=== PATIENT | male | born 1950 | race Caucasian/White ===

== ENCOUNTER 2022-06-18 12:21 | Emergency (ER) | payer BC, SELFPAY ==
[2022-06-18 12:24] VITALS: BP 130/79; PULSE 74; RESP 18; TEMP 37.2; O2SAT 98; BMI 29.0
[2022-06-18 13:58] VITALS: BP 117/72; PULSE 75; RESP 18; O2SAT 97
--- NOTE | 2022-06-18 14:00 | PC.NURSE ---
Pt approached patient experience staff requesting reevaluation. Pt reports throat feeling worse than earlier. Tonsillary pillars remain visualized during assessment. +dry cough. Lung sounds clear bilaterally. Speaking full sentences. Airway patent. managing own secretions. No increased swelling noted to lips. tongue intact. 96-97% RA.
[2022-06-18 14:23] VITALS: BP 136/79; PULSE 60; RESP 19; TEMP 36.7; O2SAT 98
--- NOTE | 2022-06-18 14:23 | ED.ALLEREA ---
HPI - Allergic Reaction General Chief complaint: Allergic Reaction Stated complaint: reaction to medication Time Seen by Provider: 06/18/22 14:22 Source: patient Mode of arrival: ambulatory Limitations: no limitations History of Present Illness HPI narrative: 71 yo male with hx of HTN, s/p cataract surgery - has taken two doses of diamox post cataract surgery noted lower lip swelling before bed. Took last dose around 230am then noted upper lip swelling. No diff speaking or swallowing. Patient states has never had allergic reaction before he is also on lisinopril 20mg complaint: facial swelling Onset (ago): hour(s) (12+) Exposure: medication (diamox vs lisinopril (chronic use)) Symptoms: lip swelling Severity: moderate Treatment prior to arrival: none Previous Allergic Reaction History: none Related Data Previous Rx's Medication Instructions Recorded losartan 50 mg tablet 50 mg PO DAILY #30 tabs 06/18/22 Allergies Allergy/AdvReac Type Severity Reaction Status Date / Time acetazolamide Allergy Swelling Verified 06/18/22 12:31 [From Diamox Sequels] Review of Systems Review of Systems: Constitutional : No Fever, No Chills ENT/Mouth : positive oral swelling, No Hoarseness, No Swallowing Difficulty Eyes: No Eye Pain, No Swelling, No Redness Cardiovascular : No Chest Pain, No SOB Respiratory : No Cough, No Sputum, No Wheezing, No Smoke Exposure, No Dyspnea Gastrointestinal : No Nausea, No Vomiting, No Diarrhea, No abdominal Pain Genitourinary : No Dysuria, No Urinary Frequency, No Hematuria Musculoskeletal : No joint pain, No Myalgias, No Joint Swelling Skin : No Skin Lesions, no rash Neuro : No Weakness, No Numbness, No Headache Psych : No Anxiety/Panic, No Depression Heme/Lymph: No Bruising, No Lymphadenopathy Endocrine : No Polyuria, No Polydipsia All other systems reviewed and are negative PMFSH Past Medical History Attestation statement: The following information was validated with the patient. Medical History HTN (hypertension) Surgical History (Updated 06/18/22 @ 14:34 by Jessika Valenzuela DO) History of cataract surgery Social History Social History Patient Tobacco Use Status: Never used Tobacco Advance Directives: No Advance Directives Information Provided: No Physical Exam ED Vital Signs: Vital Signs - 24 hr 06/18/22 12:24 06/18/22 13:58 06/18/22 14:23 Temperature 98.9 F 98.1 F Pulse Rate 74 75 60 Respiratory Rate 18 18 19 Blood Pressure 130/79 117/72 136/79 Pulse Oximetry 98 97 98 Oxygen Delivery Method Room Air Room Air Room Air 06/18/22 14:48 Temperature 98.3 F Pulse Rate 74 Respiratory Rate 18 Blood Pressure 132/74 Pulse Oximetry 97 Oxygen Delivery Method Room Air BMI result Body Mass Index 29.0 Appearance: Alert. Oriented X3. No acute distress. Eyes: Pupils equal, round and reactive to light. ENT: Pharynx normal - no tongue or intraoral swelling. lower lip mild swelling, upper lid moderate swelling normal voice. Neck: Normal inspection. Neck supple. CVS: Normal heart rate and rhythm. Pulses normal. Respiratory: No respiratory distress. Breath sounds normal. Abdomen: Soft and non-tender. Skin: Skin warm and dry. Normal skin color. Normal skin turgor. Extremities: No lower extremity edema. No calf ttp Neuro: Oriented X 3. No motor deficit. No sensory deficit. Course Course Course Narrative: patient with resolved lower lip swelling, mild upper lip swelling - no airway issues, discussed reasons to call 911, no longer take diamoxx and no longer take lisinopril MDM - Allergic Reaction MDM Narrative Medical decision making narrative: 71 yo male with hx of HTN, s/p cataract surgery here with resolving lower lip and upper lip swelling - no airway issues will need benadryl, pepcid, will avoid steroids if possible, no longer needs to take diamox. Will switch lisinopril to losartan. Observation pending discharge Discharge Plan Discharge Clinical Impression: Angioedema Qualifiers: Encounter type: initial encounter Qualified Code(s): T78.3XXA - Angioneurotic edema, initial encounter Patient Disposition: Home, Self-Care Instructions: Angioedema (ED) Additional Instructions: return to ED for any worsening symptoms or concerns can take 25mg benadryl at 9pm YOU CAN NO LONGER TAKE DIAMOX OR LISINOPRIL YOUR REACTION NEXT TIME COULD BE MUCH WORSE IF SWELLING PROGRESSES OR YOU HAVE DIFFICULTY BREATHING OR SWALLOWING SEEK IMMEDIATE MEDICAL CARE FOLLOW UP WITH PCP IN 1 WEEK Prescriptions: New losartan 50 mg tablet 50 mg PO DAILY Qty: 30 0RF
[2022-06-18] MEDS: diphenhydrAMINE HCL 50 MG/ML VIAL IVPUSH (14:36)
[2022-06-18] MEDS: Famotidine/PF 20 MG/2 ML VIAL IVPUSH (14:36)
--- NOTE | 2022-06-18 14:39 | PC.NURSE ---
patient a/ox4 . andresrla . heart rate regular at 56 beats per minute . lungs clear . upper lip swollen . no airway compromise noted , breathing unlabored . IV placed in right AC . patient medicated as ordered by DR. Valenzuela . abdomen soft not tender . positive bowel sounds ion all four quadrants . patient aware of plan of care .
[2022-06-18 14:48] VITALS: BP 132/74; PULSE 74; RESP 18; TEMP 36.8; O2SAT 97
--- NOTE | 2022-06-18 16:00 | PC.NURSE ---
Patient swelling in upper lip has decreased after administering medication as ordered by provider . patient aware of planb of care .
== END 2022-06-18 16:48 | disposition home or self-care (01) ==
PROVIDERS: Emergency Provider Emergency Medicine; PCP Internal Medicine
DX: T78.3XXA Angioneurotic edema, initial encounter (principal); T50.995A Adverse effect of other drugs, medicaments and biological substances, initial encounter; Y92.019 Unspecified place in single-family (private) house as the place of occurrence of the external cause
CPT/HCPCS: 96374; 96375; 99284; J1200

== ENCOUNTER 2025-05-07 20:51 | Emergency (ER) | payer MEDICARE, SELFPAY ==
--- NOTE | 2025-05-07 | ECG_ITS ---
Test Reason : FALL Blood Pressure : */* mmHG Vent. Rate : 65 BPM Atrial Rate : * BPM P-R Int : * ms QRS Dur : 126 ms QT Int : 442 ms P-R-T Axes : * -2 42 degrees QTcB Int : 459 ms Wide QRS rhythm Non-specific intra-ventricular conduction block Abnormal ECG No previous ECGs available Referred By: Generic ED Physician Electronically Signed By: Kalin Logan
--- NOTE | ~2025-05-07 | CT_ITS ---
CLINICAL HISTORY: head trauma, etoh CT cervical spine without contrast Comparison: None provided Findings: No acute cervical spine fracture. Mild reversal cervical lordosis. Trace anterolisthesis at C2-C3 and C3-C4. Disc osteophyte complexes are multifocal without significant spinal canal stenosis by CT. Multifocal foraminal narrowing includes mild-moderate from C3-C4 to C6-C7, left worse than right. Ligament calcifications and facet arthropathy are multifocal. No paraspinal hematoma. Metal artifacts noted. Scarring of the partially imaged lung apices. IMPRESSION: No acute fracture of the cervical spine. This document has been electronically signed by: Franco Youngblood MD on 05/08/2025 00:26:22
--- NOTE | ~2025-05-07 | CT_ITS ---
CLINICAL HISTORY: head trauma, etoh CT head without contrast Comparison: None provided Findings: No acute intracranial hemorrhage. No midline shift or hydrocephalus. Mild volume loss is generalized. Mild white matter lesions likely due to small-vessel ischemic disease. No large arterial territorial infarction by CT. Mild asymmetry of the lateral ventricles, right larger than left with cavum velum interpositum. No acute skull fracture. Partially imaged nasal bone fractures/deformities appear old/chronic. Mucosal thickening of the paranasal sinuses are multifocal. Imaged mastoid air cells are well aerated with asymmetric pneumatization of the petrous apices. Metal artifacts noted. Previous cataract procedure changes noted. Dermal scalp calcifications are nonspecific. IMPRESSION: No acute intracranial abnormality by CT This document has been electronically signed by: Franco Youngblood MD on 05/08/2025 00:27:04
[2025-05-07 20:52] VITALS: BP 106/55; BP 98/41; PULSE 62; PULSE 65; TEMP 36.6; O2SAT 94; O2SAT 95; BMI 30.7
--- OUTSIDE RECORDS SUMMARY | 2025-05-07 21:32 | XMS_ITS | Encounter Summary ---
Author Organization [facility] Address [address] [place] [address] Phone Care Team Providers Care Instructor Bridge Name Role Phone Ancelmo Miguel MD Primary Care Provider [phone] Steve Adams MD Unavailable [phone] Jesi Pop MD Unavailable [phone] Encounter Details Date Type Department Care Team (Late st Contact Info) Description 04/09/2025 Procedure Pass [facility] Endoscopy Admitting Dept Virtual Department [address] [place], [place] [id number] Social History Tobacco Use Types Packs/Day Years Used Date Smoking Tobacco: Never Smokeless Tobacco: Never Alcohol Use Standard Drinks/Week Comments Yes 14 (1 standard drink = 0.6 oz pure alcohol) Vodka approximately 6 ounces 4 to 7 days/week Child or Family Care Answer Date Record ed Do you have problems with on e of the following making it difficult for you to work, study, or receive health care? No 03/04/2022 Education Answer Date Recorded Are you interested in more education? Not on abbie e 03/08/2024 Are you concerned about learning? Not on file 03/08/2024 No 03/08/2024 No 03/08/2024 Food Answer Date Recorded Within the past 6 months we worried whether our food would run out before we got money to buy more. Never True 03/04/2022 Within the past 6 months the food we bought just didn't last and we didn't have enough money to get more. Never True Residential Stability Answer Date Recor ded What is your housing situation today? I have mk lashay 03/04/2022 How many times have you move d in the past 12 months? Zero (I did not move) 03/04/2022 Paying for Meds Answer Date Recorded Do you have trouble paying for medicines? No 03/04/2022 Paying Utility Bills Answer Date Record ed Do you have trouble paying your heating or elect ricity bill? No 03/04/2022 Transportation Answer Date Recorded Has the lack of transportati on kept you from medical appointments or from getting medications? No 03/04/2022 Unemployment Answer Date Recorded Are you currently unemployed or working on a part-time or temporary basis, and looking for work? No 03/04/2022 Digital Access Answer Date Recorded No 01/29/2023 No 01/29/2023 Reliable internet access at home? Not on file 01/29/2023 Device with a working camera? Not on file Intimate Partner Violence Answer Date R ecorded Denied Basic Needs Not on file 04/03/2025 In the past 12 months have y ou been in a relationship with a person who hurts, threatens, or tries to control you? No 04/03/2025 Worried food would run out Not on file 04/03 In the past 12 months have y ou been in a relationship with a person who hurts, threatens, or tries to control you? 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 Not on file Not on file Not on fi le documented as of this encounter Plan of Treatment Upcoming Encounters Date Type Department Care Team (Latest Contact Info) Description 11/06/2024 Procedure Pass [facility] [address] [place] [address] 05/09/2025 7:15 AM EDT Appointment Echo Lab [address] [place] [address] Misty Sosa DNP [address] [facility], [address] [place] [phone] 05/16/2025 7:30 AM EDT Office Visit [address] Floor, [address] [place] [address] Misty Sosa DNP [address] [facility], [address] [place] [id number] 05/30/2025 11:30 AM EDT Office Visit [address] Floor, [address] [place] [address] MD [address] [place] [address], [address] [place] [phone] [email or web address] 07/04/2025 Procedure Pass [facility]oscopy Admitting Dept Virtual Department [address] [place] [id number] 07/04/2025 7:30 AM EDT Hospital Encounter [facility] Admitting [facility] Virtual Department [address] [place] [id number] Ian Whitney MD [address] [place] [phone] 07/04/2025 7:30 AM EDT - 07/04/2025 7:45 AM EDT Surgery [facility]oscopy Admitting Dept Virtual Department [address] [place] [phone] Ian Whitney MD [address] [place] [id number] COLONOSCOPY 11/08/2025 8:00 AM EST Office Visit Thakur [address] [place] [address] Ancelmo Miguel MD [address] [place] [address], [address] [place] [address] [email or web address] Scheduled Procedures Name Priority Associated Diagnoses Date/Ti me COLONOSCOPY Personal history of colon polyps, unspecified 07/04/2025 7:30 AM EDT documented as of this encounter Visit Diagnoses Not on filedocumented in this encounter Additional Health Concerns Assessment Noted Time PHQ-2 Depression Total Score: 0 07/27/20 24 4:30 AM EST documented as of this encounter Care Teams Instructor Bridge Relationship Specialty Start Date End Date Ancelmo Miguel MD [address] [place] [address], [address] [place] [address] PCP - General Family Medicine 09/20/18 Steve Adams MD [address] [place] [address] [address] [place] [address] Cardiology 10/04/19 Jesi Pop MD [facility] [address] [place] [address] Ophthalmology 06/09/22 documented as of this encounter Additional Source Comments The information contained in this document represents components of the legal health record. It is not the complete legal health record.[facility]
--- OUTSIDE RECORDS SUMMARY | 2025-05-07 21:32 | XMS_ITS | Clinical Summary ---
Author Organization [facility] Address [address] [place] [address] Phone Care Team Providers Care Sap Developer Name Role Phone Ancelmo Miguel MD Primary Care Provider [phone] Steve Adams MD Unavailable [phone] Jesi Pop MD Unavailable [phone] Allergies Active Allergy Reactions Criticality Noted Date Comments Acetazolamide Swelling 07/16/2022 Pollen Extracts 01/04/2025 seasonal Medications loratadine (CLARITIN) 10 mg tablet Take 10 mg by mouth daily. Active calcium carbonate (CALCIUM 600 ORAL) Take by mouth daily. Active ascorbic acid, vitamin C, (VITAMIN C) 1000 MG tablet Take 1,000 mg by mouth daily. Active omega-3 fatty acids 500 mg CapIndications:5 00-1000 Take by mouth daily. Indications : 500-1000 Active cholecalciferol (VITAMIN D3) 2,000 unit tablet Take 1,000 Units by mouth daily. Active glucosamine 500 mg Cap Take 500 mg by mouth daily. Active metoprolol succinate (TOPROL-XL) 50 MG 24 hr tabletIndication s:Persistent atrial fibrillation Take 1 tablet (50 mg total) by mouth daily. 90 tablet 2 04/06/20 24 Active aspirin 81 MG EC tablet Take 81 mg by mouth. 09/13/19 25 026 Active flecainide (TAMBOCOR) 100 MG tablet Take 1 tablet (100 mg total) by mouth 2 (two) times a day. 180 tablet 3 11/14/19 25 Active lisinopril (PRINIVIL,ZESTRI L) 10 MG tabletIndication s:Essential hypertension TAKE ONE TABLET BY MOUTH EVERY DAY IN THE MORNING 90 tablet 1 01/16/20 25 Active omeprazole (PRILOSEC) 20 MG capsule Take 1 capsule (20 mg total) by mouth daily. 30 capsule 11 03/07/20 25 Active furosemide (LASIX) 40 MG tablet TAKE ONE TABLET BY MOUTH EVERY DAY 90 tablet 5 04/17/20 25 Active furosemide (LASIX) 40 MG tablet Take 1 tablet by mouth as needed. 01/31/20 25 025 Discontinued Active Problems Problem Noted Date Diagnosed Date Obstructive sleep apnea syndrome 01/25/2025 Overview (05/04/2025): April 2025, home sleep study at [facility], severe sleep apnea. Managed by pulmonary Normocytic anemia 11/13/2024 Assessment & Plan (01/25/2025 11:56 AM EDT): Possibly due to placement of Watchman device. If hemoglobin is still low, will need further evaluation Epistaxis, recurrent 08/02/2024 Assessment & Plan (08/08/2024 7:31 AM EST): This patient has recurrent significant nosebleeds he would like to talk with a watchman implanter which I will arrange here at the office Assessment & Plan (08/02/2024 12:03 PM EST): Likely due to dry air irritating his nose. If Vaseline alone is not helpful, he could try using a saline nasal spray a couple of times a day and may also benefit from using a humidifier in his bedroom. If this is not helpful, I can refer him to ENT. Elevated liver function tests 12/27/2023 Assessment & Plan (02/08/2024 8:20 AM EDT): Followed and stable Assessment & Plan (12/27/2023 8:29 AM EDT): Likely due to alcohol use, should be better since he is cut back significantly. Should limit alcohol consumption to 2 or fewer drinks per day. Persistent atrial fibrillation 12/06/2023 Overview (11/13/2024): Watchman device placed 2023 Assessment & Plan (01/25/2025 11:56 AM EDT): Heart rate is well-controlled. He is having more daytime somnolence and I wonder if he has sleep apnea. The other possibility is he may not be tolerating metoprolol but I do not want to suggest making medication change until we do a sleep study. Follow-up as planned with cardiology Assessment & Plan (11/06/2024 8:00 AM EST): Continues to asymptomatic and denies any symptoms of atrial fibrillation. He is rate controlled on metoprolol 50 mg daily M flecainide 100 mg twice daily. He is no longer on Eliquis due to having the Watchman procedure back in September of this year. He is on aspirin 81 mg daily and clopidogrel 75 mg daily which she will remain on until he sees Dr. Saavedra at his follow-up appointment in December. Assessment & Plan (08/02/2024 12:03 PM EST): Doing well, clinically appears to be in sinus rhythm. Edema is better but not resolved. Continue low-sodium diet and anticoagulation. If edema worsens, he can continue using furosemide as needed. Assessment & Plan (04/06/2024 10:20 AM EDT): Now maintaining sinus rhythm on flecainide s/p cardioversion. Feeling well. Reviewed nuclear stress test with Dr Cardenas. Likely artifact and OK to continue flecainide without change. Again, patient denies any symptoms consistent with angina. He has been taking Lasix since he was diagnosed with atrial fibrillation back in the spring. I suspect now that he is back in sinus rhythm he will not need ongoing daily diuretic. Will discontinue Lasix today. He will monitor for recurrence of lower extremity edema, increased dyspnea, etc and let us know if he notices these. Assessment & Plan (03/08/2024 7:58 AM EDT): EKG today shows sinus bradycardia following cardioversion on 02/16. He feels well. He is currently taking 50 mg metoprolol daily, 100 mg flecainide BID, 5 mg Eliquis BID and 40 mg Lasix daily in terms of cardiac medications. He has never had a stress test. 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 He is euvolemic on exam today. He will go for repeat labs in the next week or so. Will consider discontinuation of diuretic at our follow up visit in a couple of weeks. Assessment & Plan (02/08/2024 8:20 AM EDT): As mentioned he has probably been in atrial fibrillation for about 2 months now he has not converted so we are increasing the flecainide to 100 mg twice a day he is already on anticoagulation I am going to schedule him for cardioversion. Assessment & Plan (01/07/2024 7:49 AM EDT): As mentioned he is getting side effects from the metoprolol I will cut this in half start flecainide and low-dose get an MCOT monitor for a week in 2 weeks and if he converts great if he does not convert then we will get him to have an electrical cardioversion. Assessment & Plan (12/27/2023 8:28 AM EDT): Clinically appears euvolemic and heart rate is better controlled but still a bit high. I will increase his dose of metoprolol. Continue anticoagulation. Ultimately would be good if we can get him back into sinus rhythm. Referral was already entered to [facility] cardiology and I will have triage see if we can help expedite the referral. Assessment & Plan (12/06/2023 5:45 PM EDT): Symptoms are likely due to atrial fibrillation which is probably been in for a few months. Start metoprolol to control heart rate which likely will improve ejection fraction and reduce edema. He will have labs done tomorrow. If there is no significant abnormality, he needs to be started on anticoagulation. We discussed the thromboembolic risk of atrial fibrillation. He is already scheduled to have an echocardiogram done later this month for evaluation of his mitral regurgitation. I also would like him to be seen by cardiology to discuss rhythm control options. He has a follow-up appoint with me in about 3 weeks. Hypercalcemia 07/04/2023 History of adenomatous polyp of colon 10/04/2019 Overview (10/04/2019): On initial colonoscopy around age 51. Subsequent colonoscopies have been normal. Previous colonoscopies were done at [facility]. Assessment & Plan (08/02/2024 12:02 PM EST): For colonoscopy November 2024, patient will contact [facility] to schedule Assessment & Plan (06/28/2023 3:23 PM EDT): Asymptomatic, due for colonoscopy in 2024 Assessment & Plan (10/07/2020 9:57 AM EST): Asymptomatic, continue screening as recommended per GI. Assessment & Plan (10/04/2019 8:45 AM EST): Referred to GI for colonoscopy this summer. Non-rheumatic mitral regurgitation 09/22/2018 Overview (06/28/2023): 2018, possible perforated leaflet. 2016 echo moderate to severe. Previous echoes at [facility]. 2019, mild mitral regurg. Echo 2022, mild mitral regurg Assessment & Plan (11/06/2024 7:59 AM EST): In preparation for his watchman he did undergo a JAMILA. This showed a moderate to severe mitral regurgitation. We will follow-up with another echocardiogram in 6 months. He has no symptoms. Assessment & Plan (08/08/2024 7:32 AM EST): He has moderate mitral regurgitation on his last echo I will follow-up with another echo at some point. Assessment & Plan (06/28/2023 3:22 PM EDT): Clinically is doing well, recheck echo Assessment & Plan (06/09/2022 10:33 AM EDT): Clinically the murmur seems unchanged. He is having a slight increase in his exertional dyspnea but overall his exercise tolerance is outstanding and I suspect these are just normal changes with age. I will recheck an echocardiogram in the winter. Assessment & Plan (04/08/2021 8:17 AM EDT): Clinically is doing well. No interventions needed at this time. Assessment & Plan (10/07/2020 9:59 AM EST): Clinically is doing well. Recheck echo due to possible perforated leaflet in the past.. Assessment & Plan (10/04/2019 8:44 AM EST): Asymptomatic, continue to follow clinically. Essential hypertension 09/22/2018 Assessment & Plan (01/25/2025 11:56 AM EDT): Blood pressure is well-controlled, continue current medication Assessment & Plan (11/06/2024 7:59 AM EST): Blood pressure is well-controlled today 118/82. He is on lisinopril 10 mg daily, metoprolol 50 mg daily which he will continue without change Assessment & Plan (08/08/2024 7:31 AM EST): Mildly elevated today goal should be less than 130 systolic Assessment & Plan (08/02/2024 12:02 PM EST): Well-controlled, continue current medication Assessment & Plan (01/07/2024 7:50 AM EDT): Well-controlled to the guidelines Assessment & Plan (12/27/2023 8:27 AM EDT): Blood pressure is a little bit low since moving to increase his dose of Toprol I will cut back on his dose of lisinopril. Asked him to monitor his blood pressure at home couple times per week and send me about 10 blood pressure readings in the next few weeks. Goal is to maintain an average blood pressure less than 130/80. Assessment & Plan (06/28/2023 3:23 PM EDT): Well-controlled, continue current medication. Assessment & Plan (09/03/2022 8:46 AM EST): Blood pressures well controlled, continue current medication. Assessment & Plan (06/09/2022 10:33 AM EDT): Blood pressure is well controlled, continue current medication Assessment & Plan (03/04/2022 5:27 PM EDT): Well-controlled, continue current medication Assessment & Plan (04/08/2021 8:16 AM EDT): Well-controlled, continue current medication. Assessment & Plan (10/07/2020 9:56 AM EST): Blood pressures well controlled, continue current medication. Assessment & Plan (04/10/2020 8:57 AM EDT): Hypertension is well controlled, continue current medication. Since his creatinine did bump a bit I like to recheck this to make sure there is been any continued upward movement there. Otherwise we will see him back in the office in about 6 months for a preventive health visit. Assessment & Plan (10/04/2019 8:44 AM EST): Blood pressures well controlled, continue current medication. Assessment & Plan (03/29/2019 9:03 AM EDT): Blood pressures well controlled. Continue current medication. Assessment & Plan (12/26/2018 9:13 AM EDT): Home blood pressures are elevated at home, it is better today here in the office. This may be due to him using a wrist cuff at home. I asked him to get a upper arm cuff and check his blood pressure twice a week for the next few weeks and let me know what the results are. If his blood pressure continues to run above the goal of less than 140/90, I will increase the dose of his medication. I also strongly encouraged him to limit his alcohol intake to 2 ounces or less of vodka daily, since alcohol consumption will elevated blood pressure and increases risk of healthcare complications. Assessment & Plan (09/23/2018 9:42 AM EST): Blood pressure is still too high. We will increase his dose of lisinopril to 10 mg. Continue to check blood pressure at home a few times a week and call in 2 weeks with home blood pressure readings. Blood pressure goal is less than 140/90. If he still not at goal when he calls we will increase his lisinopril to 20 mg. Resolved Problems Problem Noted Date Diagnosed Date Resolved Date Dyspnea on exertion 07/16/2022 08/02/20 Assessment & Plan (02/08/2024 8:20 AM EDT): This is probably the patient's symptoms which is why I am estimating that he started to have atrial fibrillation 2 months ago Assessment & Plan (01/07/2024 7:50 AM EDT): I think this is all related to his atrial fibrillation which she has symptoms from so we will try to get him back in sinus rhythm Assessment & Plan (07/16/2022 12:19 PM EST): The level of dyspnea had seems appropriate for the level of exertion he had. The fact that he is able to go on 30 mile bike rides without any difficulty is very reassuring. His EKG today is also reassuring. I will check his CBC and he is scheduled to have an echocardiogram rechecked in a few months. Unless his symptoms worsen, no further evaluation is needed. Cortical age-related cataract of both eyes 06/09/2022 06/28/2023 Assessment & Plan (06/09/2022 10:33 AM EDT): There is no contraindication to proceed with scheduled cataract surgery Hyponatremia 10/07/2020 06/28/2023 Assessment & Plan (10/07/2020 9:57 AM EST): Likely due to alcohol consumption. I strongly encouraged him to limit his alcohol consumption to 2 or less ounces of vodka or equivalent per day. Colon adenoma 11/14/2019 06/28/2023 Overview (11/14/2019): November, Encounters Date Type Department Care Team Description 04/17/2025 Refill [facility] [address], [address] [place] [address] Shady Steele MD Medication Refill 04/09/2025 7:30 AM EDT Anesthesia Event [facility] Endoscopy Admitting Dept Virtual Department [address] [place] [id number] Julianna Garces MD 04/09/2025 Procedure Pass [facility] Endoscopy Admitting Dept Virtual Department [address] [place] [id number] 04/09/2025 Surgery [facility] Endoscopy Admitting Dept Virtual Department [address] [place] [id number] Julianna Diane MD Not Performed COLONOSCOPY 04/09/2025 Hospital Encounter [facility] Endoscopy Admitting Dept Virtual Department [address] [place] [id number] Julianna Diane MD 04/03/2025 2:45 PM EDT Pre-Admission Testing Pre Procedure Evaluation [address] [place] [address] Julianna Diane MD 03/19/2025 Refill [place] [address] [address] [place] [address] MD Medication Refill 03/07/2025 1:00 PM EDT Office Visit [address] [place] [address] MD AKANKSHA (obstructive sleep apnea) (Primary Dx); Gastroesophageal reflux disease with esophagitis without hemorrhage from Last 3 Months Immunizations Immunization Administration Dates Next Due COVID-19 (Pre-06/28) Pfizer Vaccine, mRNA, PF 12/03/2020,11/12/2020 INFLUENZA, SPLIT VIRUS, TRIV ALENT W/ PRESERVATIVE IM 06/11/2010 Influenza High-Dose Quadriva lent Preservative Free IM 06/28/2023,06/24/2021 Influenza High-Dose Trivalen t Preservative Free IM 06/05/2024,05/25/2019,06/08/2018 Influenza Quadrivalent Adjuv anted Preservative Free IM 07/21/2022 Influenza Quadrivalent Prese rvative Free IM 06/20/2016,08/23/2015 Influenza Recombinant Segun valent Preservative Free IM 05/31/2020 Influenza, Unspecified Formulation 07/05/2014 Pneumococcal conjugate PCV13 03/03/2017 Pneumococcal polysaccharide PPSV23 06/08/2018 Td (adult),2 Lf Tetanus Toxo id, PF, Adsorbed 09/06/2001 Tdap 02/09/2012 Zoster recombinant 08/28/2019, 9,05/25/2019,05/25 Family History Medical History Relation Comments Alcohol abuse Brother No Known Problems Daughter Coronary artery disease Father Heart disease Father Heart disease Mother Heart failure Mother Alcohol abuse Sibling 1 quit 2012 No Known Problems Son Relation Status Comments Brother (Age 53) at work, ETOH - exact nature unclear Daughter Alive Father (Age 71) Granddaughter Alive Grandson Alive Mother (Age 89) Sibling 1 Alive Sibling 2 Alive Sibling 3 Alive Sibling 4 Alive Son Alive Social History Tobacco Use Types Packs/Day Years Used Date Smoking Tobacco: Never Smokeless Tobacco: Never Tobacco Cessation:Counseling Given: Not Answered Alcohol Use Standard Drinks/Week Comments Yes 14 [...] your housing situation today? 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 Not on file Not on fi le Last Filed Vital Signs Vital Sign Reading Time Taken Comments Blood Pressure 120/60 03/07/2025 12:44 PM EDT Pulse 77 03/07/2025 12:44 PM EDT Temperature 36.6 C (97.8 F) 01/25/2025 11:18 AM EDT Respiratory Rate 16 02/17/2024 12:00 PM EDT Oxygen Saturation 98% 03/07/2025 12:44 PM EDT Inhaled Oxygen Concentration - - Weight 103.9 kg (229 lb) 03/07/2025 12:44 PM EDT Height 182.2 cm (5' 11.73 ) 03/07/2025 12:44 PM EDT Body Mass Index 31.29 03/07/2025 12:44 PM EDT Plan of Treatment Upcoming Encounters Date Type Department Care Team (Latest Contact Info) Description 11/06/2024 Procedure Pass [facility] [address] [place] [address] 05/09/2025 7:15 AM EDT Appointment Echo Lab [address] [place] [address] Misty Sosa DNP [address] [place] [address], [address] [address] 05/16/2025 7:30 AM EDT Office Visit [facility] [address], [address] [place] [address] Misty Sosa DNP [address] [place] [address], [address] [address] 05/30/2025 11:30 AM EDT Office Visit [facility] [address], [address] [place] [address] MD [address] [place] [address], [address] [address] [email or web address] 07/04/2025 Procedure Pass [facility] Endoscopy Admitting Dept Virtual Department [address] [place] [id number] 07/04/2025 7:30 AM EDT Hospital Encounter [facility] Endoscopy Admitting Dept Virtual Department [address] [place] [id number] Julianna Diane MD [address] [address] 07/04/2025 7:30 AM EDT - 07/04/2025 7:45 AM EDT Surgery [facility] Endoscopy Admitting Dept Virtual Department [address] [place] [id number] Julianna Diane MD [address] [address] COLONOSCOPY 11/08/2025 8:00 AM EST Office Visit [address] [place] [address] Ancelmo Miguel MD [address] [facility] [place] [address] [email or web address] Scheduled Procedures Name Priority Associated Diagnoses Date/Ti me COLONOSCOPY Personal history of colon polyps, unspecified 07/04/2025 7:30 AM EDT Health Maintenance Due Date Last Done Comments COLOGUARD 1996 FIT TEST 1996 FOBT 1996 SIGMOIDOSCOPY 1996 VIRTUAL COLONOSCOPY 1996 RSV VACCINE (1 - Risk 60-74 years 1-dose series) 2011 Adult Td,Tdap Booster 02/08/2022 02/09/2012, 002 COVID-19 VACCINE ( season) 2024 04/16/2022, 06/30/2021, 12/03/2020, Additional history exists COLONOSCOPY 11/12/2024 11/13/2019, 02/27/2015 COLORECTAL CANCER SCREENING 11/12/2024 INFLUENZA VACCINE (#1) 2025 , 06/28/2023, 07/21/2022, Additional history exists DEPRESSION SCREENING 07/27/2025 07/27/2024 BLOOD PRESSURE 09/07/2025 03/07/2025 CREATININE LEVEL 11/06/2025 11/06/2024, 07/2024, 02/15/2024, Additional history exists POTASSIUM LEVEL 11/06/2025 11/06/2024, 03/06, 02/15/2024, Additional history exists LIPID PANEL 03/04/2027 03/04/2022, 03/04/2022 PNEUMOCOCCAL VACCINES (50+ years) Completed 06/08/2018, 03/03/2017 ZOSTER VACCINES Completed 08/28/2019, 08/07, 05/25/2019, Additional history exists HEPATITIS C SCREENING Completed 10/04/2019, 020 SMOKING STATUS SCREENING (Once After 26 Yrs) Completed 04/03/2025 HEPATITIS A VACCINES Aged Out No long er eligible based on patient's age to complete this topic HIB VACCINES Aged Out No longer eligi ble based on patient's age to complete this topic MENINGOCOCCAL VACCINES (ACWY) Aged Out No longer eligible based on patient's age to complete this topic MENINGOCOCCAL VACCINES (B) Aged Out N o longer eligible based on patient's age to complete this topic Medical Devices Implanted Type Area Ground Crewman Device Identifier Shelf Expiration Date Model / Serial / Lot Lens Lens Bilateral: Eye Left Shoulder Metal Plates Watchman Heart Procedures Procedure Name Priority Date/Time Associated Diagnosis Comments COMPREHENSIVE METABOLIC PANEL Routine 11/06/2024 8:01 AM EST Essential hypertension LIPID PANEL Routine 03/04/2022 10:06 AM EDT Essential hypertension ENDOSCOPY, COLON 11/13/2019 7:48 AM EDT HEPATITIS C ANTIBODY, QUALITATIVE Routine 10/04/2019 8:52 AM EST Encounter for preventive health examination from Last 3 Months or Most Recently Relevant to Health Maintenance Results * (ABNORMAL) Comprehensive metabolic panel (11/06/2024 8:01 AM EST) SODIUM 132(L) 133 - 146 mmol/L [facility] POTASSIUM 5.0 3.3 - 5.1 mmol/L [facility] CHLORIDE 93(L) 96 - 108 mmol/L [facility] CO2 29 21 - 35 mmol/L [facility] BUN 16 6 - 19 mg/dL [facility] CREATININE 1.10 0.5 - 1.5 mg/dL [facility] GLUCOSE 105(H) 70 - 99 mg/dL [facility] ALBUMIN 3.9 3.9 - 4.8 g/dL [facility] TOTAL PROTEIN 7.5 6.5 - 8.0 g/dL [facility] CALCIUM 10.6(H) 8.4 - 10.3 mg/dL [facility] ALKALINE PHOSPHATASE 54 39 - 117 U/L [facility] TOTAL BILIRUBIN 0.5 0.0 - 1.2 mg/dL [facility] AST 45(H) 0 - 37 U/L [facility] ALT 10 0 - 40 U/L [facility] GLOBULIN 3.6 1 - 4.8 g/dL [facility] EGFR 71 >59 mL/min/1.7 3m2 [facility] Comment:Estimated glomerular filtration rate calculated using the CKD-EPI refit equation. ANION GAP 15 10 - 20 mmol/L [facility] Blood 11/06/2024 8:01 AM EST 11/06/2024 8:09 AM EST us Ancelmo Miguel MD LAB BLOOD ORDERABLES Final Result [address] [address] * (ABNORMAL) Lipid panel (03/04/2022 10:06 AM EDT) HDL 124 mg/dL [facility] Comment: Interpretation <40 mg/dL: Low HDL cholesterol (major risk factor for CHD) Greater than or equal to 60 mg/dL: High HDL cholesterol ( negative risk factor for CHD) HDL - cholesterol is affected by a number of factors, e.g. smoking, excerise, hormones, sex and age. CHOLESTEROL 248(H) 0 - 240 mg/dL [facility] TRIGLYCERIDES 44 30 - 160 mg/dL [facility] LDL 115 50 - 129 mg/dL [facility] Comment: LDL levels in terms of risk for coronary heart disease: <100 mg/dL: Optimal 100-129 mg/dL: Near or above optimal 130-159 mg/dL: Borderline high 160-189 mg/dL: High >190 mg/dL: Very High CARDIAC RISK RATIO 2.0(L) 3.4 - 5.0 C [facility] Blood 03/04/2022 10:0 6 AM EDT 03/04/2022 10:08 AM EDT us Ancelmo Miguel MD LAB BLOOD ORDERABLES Final Result [facility] [address] [place], [place] [id number] * ENDOSCOPY, COLON (11/13/2019 7:48 AM EDT) Narrative Transcriptions Julianna Diane MD - 11/13/2019 7:48 AM EDT Patient Name: Sean Leger Attending MD:: JULIANNA DIANE MD Procedure Date: 11/13/2019 7:48 AM Date of : 1950 Age: 69 Admit Type: Outpatient Gender: Male Room: [place] [address] Referring MD: Ancelmo Miguel MD Exam Type: Colonoscopy Indications: Surveillance: Personal history of adenomatous polypson last colonoscopy > 5 years ago Medications: Monitored Anesthesia Care Procedure: Informed consent was obtained from the patient after discussion of the indications, limitations, alternatives, benefits, and risks of the procedure. Risks specifically discussed include but are not limited to medication reactions, missed lesions, bleeding, perforation, or the need for emergentsurgery. Throughout the procedure, the patient's bloodpressure, pulse, end-tidal CO2, and oxygen saturations were monitored continuously. The Olympus adult variable colonoscope [id number] #2was introduced through the anus and advanced to thececum, identified by the appendiceal orifice, ileocecalvalve and palpation. The colonoscopy was somewhatdifficult. Successful completion of the procedure was aided by applying abdominal pressure. The patient toleratedthe procedure. The quality of the bowel preparation was good. Complications: No immediate complications. Estimated blood loss:None. Findings: The perianal and digital rectal examinations were normal. Pertinent negatives include normal sphincter tone. A few small and large-mouthed diverticula were foundin the sigmoid colon and descending colon. A 6 mm polyp was found in the transverse colon. The polyp was sessile. The polyp was removed with a cold snare. Resection and retrieval were complete.Estimated blood loss was minimal. Non-bleeding internal hemorrhoids were found during retroflexion. The hemorrhoids were small. The exam was otherwise without abnormality on direct and retroflexion views. Impression: - Diverticulosis in the sigmoid colon and in the descending colon. - One 6 mm polyp in the transverse colon, removedwith a cold snare. Resected and retrieved. - Non-bleeding internal hemorrhoids. - The examination was otherwise normal on direct and retroflexion views. Recommendation: - I will send results of your biopsy to you and your referring physician or provider. If you do notreceive notification within 3 weeks, please call ouroffice. - Repeat colonoscopy in 5 years for surveillancebased on pathology results. JULIANNA DIANE MD 11/13/2019 8:15:38 AM This report has been signed electronically. Number of Addenda: 0 Note Initiated On: 11/13/2019 7:48 AM Procedure Code(s): --- Professional --- 24539, Colonoscopy, flexible; with removal of tumor(s), polyp(s), or other lesion(s) by snare technique --- Technical --- 34004, Colonoscopy, flexible; with removal of tumor(s), polyp(s), or other lesion(s) by snare technique Diagnosis Code(s): --- Professional --- Z86.010, Personal history of colonic polyps K64.8, Other hemorrhoids D12.3, Benign neoplasm of transverse colon (hepatic flexure or splenic flexure) K57.30, Diverticulosis of large intestine without perforation or abscess without bleeding --- Technical --- Z86.010, Personal history of colonic polyps K64.8, Other hemorrhoids D12.3, Benign neoplasm of transverse colon (hepatic flexure or splenic flexure) K57.30, Diverticulosis of large intestine without perforation or abscess without bleeding CPT copyright 2018 [employer]. All rights reserved. The codes documented in this report are preliminary and upon farm labor contractor reviewmay be revised to meet current compliance requirements. Procedure Date: 11/13/2019 7:48:[address] [place] [address] Ancelmo Miguel MD GI PROCEDURE ORDERABLES Fi nal Result * Hepatitis C antibody, qualitative (10/04/2019 8:52 AM EST) HCV NON-REACTIV E NON-REACTI VE [facility] Blood 10/04/2019 8:52 AM EST 10/04/2019 8:53 AM EST Ancelmo Miguel MD LAB BLOOD ORDERABLES Final Result [facility] [address] [place] [address] from Last 3 Months or Most Recently Relevant to Health Maintenance Insurance [place] MEDICARE PPO BLUE REPLACEMENT MEDICARE PPO BLUE REPLACEMENT MEDICARE PPO BLUE REPLACEMENT [place] [address] MEDICARE PPO BLUE REPLACEMENT Member Subscriber Plan / Payer (Ef fective 2016-Present) Name:Sean Leger Relation to Subscriber:Self Name:Sean Leger Payer ID:[id number] (NAIC) Type:Medicare Address: [address] [place], [place] [facility] MEDICARE PPO BLUE REPLACEMENT Member Subscriber Plan / Payer ( fective 2016-Present) Name:Sean Leger Relation to Subscriber:Self Name:Sean Leger Payer ID:[id number] ([facility]) Type:Medicare Address: [facility] [id number] [place], [place] [facility] MEDICARE PPO BLUE REPLACEMENT Member Subscriber Plan / Payer ( fective 2016-Present) Name:Sean Leger Relation to Subscriber:Self Name:Sean Leger Payer ID:[id number] ([facility]) Type:Medicare Address: [facility] [id number] [place], [place] Care Teams Sap Developer Relationship Specialty Start Date End Date Ancelmo Miguel MD [address] [facility], [address] [place] [address] PCP - General Family Medicine 09/20/18 Steve Adams MD [address] [facility] [address] [place] [address] Cardiology 10/04/19 [place] [address] [place] [address] 205 [place] [address] Ophthalmology 06/09/22 Additional Source Comments The information contained in this document represents components of the legal health record. It is not the complete legal health record.[facility]
--- OUTSIDE RECORDS SUMMARY | 2025-05-07 21:32 | XMS_ITS | Encounter Summary ---
Author Organization [facility] Address [address] [place] [address] Phone Care Team Providers Care Bond Trader Name Role Phone Ancelmo Miguel MD Primary Care Provider + [phone] Ancelmo Miguel MD Unavailable [phone] Steve Adams MD Unavailable [phone] Jesi Pop MD Unavailable [phone] Encounter Details Date Type Department Care Team (Late st Contact Info) Description 10/07/2020 Procedure Pass [facility] [address] [place] [address] Social History Tobacco Use Types Packs/Day Years Used Date Smoking Tobacco: Never Smokeless Tobacco: Never Alcohol Use Standard Drinks/Week Comments Yes 14 (1 standard drink = 0.6 oz pure alcohol) Vodka approximately 6 ounces 4 to 5 days/week Sex and Gender Information Value Date Recorded Sex Assigned at Male 04/08/2020 9:10 AM EDT Legal Sex Male 9:58 AM EST Gender Identity Male 04/08/2020 9:10 AM EDT Sexual Orientation Straight 04/08/2020 9: 10 AM EDT 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 Not on file Not on fi le documented as of this encounter Functional Status documented as of this encounter Plan of Treatment Upcoming Encounters Date Type Department Care Team (Latest Contact Info) Description 11/06/2024 Procedure Pass [facility]air [address] [place] [address] 05/09/2025 7:15 AM EDT Appointment Echo Lab [address] [place] [address] Misty Sosa, SANDY [address] [facility], [address] [place] [address] 05/16/2025 7:30 AM EDT Office Visit [facility] [address] 3rd Floor, [address] [place] [address] Misty Sosa, SANDY [address] [place] [address], [address] [address] 05/30/2025 11:30 AM EDT Office Visit [address] 3[address] Floor, [address] [place] [address] MD [address] [place] [address], [address] [address] [email or web address] 07/04/2025 Procedure Pass [facility] Endoscopy Admitting Dept Virtual Department [address] [place] [address] 07/04/2025 7:30 AM EDT Hospital Encounter [facility]mitting [facility] Virtual Department [address] [place] [address] Ian Whitney MD [address] [place] [address] 07/04/2025 7:30 AM EDT - 07/04/2025 7:45 AM EDT Surgery [facility] Endoscopy Admitting Dept Virtual Department [address] [place] [address] Ian Whitney MD [address] [place] [address] COLONOSCOPY 11/08/2025 8:00 AM EST Office Visit [facility] [address] [address] Ancelmo Miguel MD [address] [place] [address], [address] [place] [address] [email or web address] Scheduled Procedures Name Priority Associated Diagnoses Date/Ti me COLONOSCOPY Personal history of colon polyps, unspecified 07/04/2025 7:30 AM EDT documented as of this encounter Visit Diagnoses Not on filedocumented in this encounter Additional Health Concerns Assessment Noted Time PHQ-2 Depression Total Score: 0 10/07/19 21 5:53 AM EST documented as of this encounter Care Teams Bond Trader Relationship Specialty Start Date End Date Ancelmo Miguel MD [address] [place] [address], [address] [place] [address] PCP - General Family Medicine 09/20/18 Ancelmo Miguel MD [address] [place] [address], [address] [place] [address] Insurance Assigned Provider 01/07/19 07/17/23 Steve Adams MD [address] [place] [address] 154 [place] [address] Cardiology 10/04/19 Jesi Pop MD [address] [place] [address] 205 [place] [address] Ophthalmology 06/09/22 documented as of this encounter Additional Source Comments The information contained in this document represents components of the legal health record. It is not the complete legal health record.[facility]
--- OUTSIDE RECORDS SUMMARY | 2025-05-07 21:32 | XMS_ITS | Encounter Summary ---
Author Organization [facility] Address [address] [facility] [address] [place] [address] Phone Care Team Providers Care Aircraft Inspection Record Clerk Name Role Phone Ancelmo Miguel MD Primary Care Provider [phone] Steve Adams MD Unavailable [phone] Jesi Pop MD Unavailable [phone] Reason for Visit * Reason Comments Medication Refill Encounter Details Date Type Department Care Team (Late st Contact Info) Description 03/19/2025 Refill [facility] [address] [place] [address] 3rd Floor, [address] [place] [address] MD [address] [place] [address], [address] [address] [email or web address] Medication Refill Social History Tobacco Use Types Packs/Day Years [...] ecorded Denied Basic Needs Not on file 01/04/2025 In the past 12 months have y ou been in a relationship with a person who hurts, threatens, or tries to control you? No 01/04/2025 Worried food would run out Not on file 01/04 In the past 12 months have y ou been in a relationship with a person who hurts, threatens, or tries to control you? 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 file Not on fi le documented as of this encounter Plan of Treatment Upcoming Encounters Date Type Department Care Team (Latest Contact Info) Description 11/06/2024 Procedure Pass [facility] [address] [place] [address] 05/09/2025 7:15 AM EDT Appointment Echo [facility] [address] [place] [address] Misty Sosa DNP [address] [place] [address], [address] [place] [address] 05/16/2025 7:30 AM EDT Office Visit [facility] [address] 3[address] Floor, [address] [place] [address] Misty Sosa DNP [address] [place] [address], [address] [address] 05/30/2025 11:30 AM EDT Office Visit [address] 3[address] Floor, [address] [place] [address] MD [address] [place] [address], [address] [address] [email or web address] 07/04/2025 Procedure Pass [facility] Admitting [facility] Virtual Department [address] [place] [address] 07/04/2025 7:30 AM EDT Hospital Encounter [facility]mitting [facility] Virtual Department [address] [place] [address] Ian Whitney MD [address] [place] [address] 07/04/2025 7:30 AM EDT - 07/04/2025 7:45 AM EDT Surgery [facility]oscopy Admitting Dept Virtual Department [address] [place] [address] Ian Whitney MD [address] [place] [address] COLONOSCOPY 11/08/2025 8:00 AM EST Office Visit [facility] [address] [place] [address] Ancelmo Miguel MD [address] [place] [address], [address] [place] [address] [email or web address] Scheduled Procedures Name Priority Associated Diagnoses Date/Ti me COLONOSCOPY Personal history of colon polyps, unspecified 07/04/2025 7:30 AM EDT documented as of this encounter Visit Diagnoses Not on filedocumented in this encounter Additional Health Concerns Assessment Noted Time PHQ-2 Depression Total Score: 0 07/27/20 24 4:30 AM EST documented as of this encounter Care Teams Aircraft Inspection Record Clerk Relationship Specialty Start Date End Date Ancelmo Miguel MD [address] [place] [address], [address] [place] [address] PCP - General Family Medicine 09/20/18 Steve Adams MD [address] [place] [address] 154 [place] [address] Cardiology 10/04/19 Jesi Pop MD [address] [place] [address] 205 [place] [address] Ophthalmology 06/09/22 documented as of this encounter Additional Source Comments The information contained in this document represents components of the legal health record. It is not the complete legal health record.[facility]
--- OUTSIDE RECORDS SUMMARY | 2025-05-07 21:32 | XMS_ITS | Encounter Summary ---
Author Organization [facility] Address [address] [place] [address] Phone Care Team Providers Care Cyber Intel Planner Name Role Phone Ancemlo Miguel MD Primary Care Provider [phone] Steve Adams MD Unavailable [phone] Jesi Pop MD Unavailable [phone] Encounter Details Date Type Department Care Team (Late st Contact Info) Description 02/08/2024 Procedure Pass [facility] [address] [place] [address] Social History Tobacco Use Types Packs/Day Years Used Date Smoking Tobacco: Never Smokeless Tobacco: Never Alcohol Use Standard Drinks/Week Comments Yes 14 (1 standard drink = 0.6 oz pure alcohol) Vodka approximately 6 ounces 4 to 5 days/week Child or Family Care Answer Date Record ed Do you have problems with on e of the following making it difficult for you to work, study, or receive health care? No 03/04/2022 Education Answer Date Recorded Are you interested in help w ith more adult education (for example, completing high school, GED, job training, learning the Czech language, technical skills, or developing parenting skills)? No 03/04/2022 Food Answer Date Recorded Within the past [...] with a working camera? 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 Not on fi le documented as of this encounter Plan of Treatment Upcoming Encounters Date Type Department Care Team (Latest Contact Info) Description 11/06/2024 Procedure Pass [facility] [address] [place] [address] 05/09/2025 7:15 AM EDT Appointment [facility] [place] [address] [place] [address] Misty Sosa DNP [address] [place] [address], [address] [address] 05/16/2025 7:30 AM EDT Office Visit [facility] Fel[address] 3rd Floor, [address] [place] [address] Misty Sosa DNP [address] [place] [address], [address] [address] 05/30/2025 11:30 AM EDT Office Visit [facility] [address] [place] [address] Dr 3rd Floor, [address] [place] [address] MD [address] [place] [address], [address] [place] [address] [email or web address] 07/04/2025 Procedure Pass [facility] Endoscopy Admitting Dept Virtual Department [address] [place] [address] 07/04/2025 7:30 AM EDT Hospital Encounter [facility] Endoscopy Admitting Dept Virtual Department [address] [place] [address] Ian Whitney MD [address] [address] 07/04/2025 7:30 AM EDT - 07/04/2025 7:45 AM EDT Surgery [facility] Endoscopy Admitting Dept Virtual Department [address] [place] [address] Ian Whitney MD [address] [place] [address] COLONOSCOPY 11/08/2025 8:00 AM EST Office Visit [facility] Medicine [address] [place] [address] [place] [address] Ancelmo Miguel MD [address] [place] [address], [address] [place] [address] [email or web address] Scheduled Procedures Name Priority Associated Diagnoses Date/Ti me COLONOSCOPY Personal history of colon polyps, unspecified 07/04/2025 7:30 AM EDT documented as of this encounter Visit Diagnoses Not on filedocumented in this encounter Additional Health Concerns Assessment Noted Time PHQ-2 Depression Total Score: 0 06/28/20 23 2:30 PM EDT documented as of this encounter Care Teams Cyber Intel Planner Relationship Specialty Start Date End Date Ancelmo Miguel MD [address] [place] [address], [address] [place] [address] [email or web address] PCP - General Family Medicine 09/20/18 Steve Adams MD [address] [place] [address] 154 [place] [address] Cardiology 10/04/19 Jesi Pop MD [address] [place] [address] 205 [place] [address] Ophthalmology 06/09/22 documented as of this encounter Additional Source Comments The information contained in this document represents components of the legal health record. It is not the complete legal health record.[facility]
--- OUTSIDE RECORDS SUMMARY | 2025-05-07 21:32 | XMS_ITS | Encounter Summary ---
Author Organization [facility] Address [address] [place] [address] Phone Care Team Providers Care Math Teacher Name Role Phone Ancelmo Miguel MD Primary Care Provider + [phone] Ancelmo Miguel MD Unavailable [phone] Steve Adams MD Unavailable [phone] Jesi Pop MD Unavailable [phone] Encounter Details Date Type Department Care Team (Late st Contact Info) Description 11/13/2019 Procedure Pass [facility] Endoscopy Admitting Dept Virtual Department [address] [place] [address] Social History Tobacco Use Types Packs/Day Years Used Date Smoking Tobacco: Never Smokeless Tobacco: Never Alcohol Use Standard Drinks/Week Comments Yes 14 (1 standard drink = 0.6 oz pu re alcohol) 2/day Sex and Gender Information Value Date Recorded Sex Assigned at Male 04/08/2020 9:10 AM EDT Legal Sex Male 9:58 AM EST Gender Identity Male 04/08/2020 9:10 AM EDT Sexual Orientation Straight 04/08/2020 9: 10 AM EDT documented as of this encounter Plan of Treatment Upcoming Encounters Date Type Department Care Team (Latest Contact Info) Description 11/06/2024 Procedure Pass [facility] [address] [place] [address] 05/09/2025 7:15 AM EDT Appointment Echo Lab [address] [place] [address] Misty Sosa DNP [address] [facility], [address] [place] [address] 05/16/2025 7:30 AM EDT Office Visit [facility] [address] 3[address] Floor, [address] [place] [address] Misty Sosa DNP [address] [facility], [address] [place] [address] 05/30/2025 11:30 AM EDT Office Visit [address] 3[address] Floor, [address] [place] [address] MD [address] [place] [address], [address] [address] [email or web address] 07/04/2025 Procedure Pass [facility] Endoscopy Admitting Dept Virtual Department [address] [place] [address] 07/04/2025 7:30 AM EDT Hospital Encounter [facility]oscopy Admitting Dept Virtual Department [address] [place] [address] Ian Whitney MD [address] [place] [address] 07/04/2025 7:30 AM EDT - 07/04/2025 7:45 AM EDT Surgery [facility] Endoscopy Admitting Dept Virtual Department [address] [place] [address] Ian Whitney MD [address] [place] [address] COLONOSCOPY 11/08/2025 8:00 AM EST Office Visit [address] [place] [address] Ancelmo Miguel MD [address] [facility], [address] [place] [address] [email or web address] Scheduled Procedures Name Priority Associated Diagnoses Date/Ti me COLONOSCOPY Personal history of colon polyps, unspecified 07/04/2025 7:30 AM EDT documented as of this encounter Visit Diagnoses Not on filedocumented in this encounter Care Teams Math Teacher Relationship Specialty Start Date End Date Ancelmo Miguel MD [address] [place] [address], [address] [place] [address] PCP - General Family Medicine 09/20/18 Ancelmo Miguel MD [address] [place] [address], [address] [place] [address] Insurance Assigned Provider 01/07/19 07/17/23 Steve Adams MD [address] [place] [address] 154 [place] [address] Cardiology 10/04/19 Jesi Pop MD [address] [facility] 205 [place] [address] Ophthalmology 06/09/22 documented as of this encounter Additional Source Comments The information contained in this document represents components of the legal health record. It is not the complete legal health record.[facility]
--- OUTSIDE RECORDS SUMMARY | 2025-05-07 21:32 | XMS_ITS | Encounter Summary ---
Author Organization [facility] Address [address] [place] [address] Phone Care Team Providers Care Plastics Plater Name Role Phone Ancelmo Miguel MD Primary Care Provider [phone] Steve Admas MD Unavailable [phone] Jesi Pop MD Unavailable [phone] Encounter Details Date Type Department Care Team (Late st Contact Info) Description 01/07/2024 Procedure Pass Echo [facility] [address] [place] [address] Social History Tobacco Use Types Packs/Day Years [...] high school, GED, job training, learning the Georgian language, technical skills, or developing parenting skills)? 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 Not on file Not on fi le documented as of this encounter Plan of Treatment Upcoming Encounters Date Type Department Care Team (Latest Contact Info) Description 11/06/2024 Procedure Pass [facility] [address] [place] [address] 05/09/2025 7:15 AM EDT Appointment Echo Lab [place] [address] [place] [address] Misty Sosa DNP [address] [place] [address], [address] [address] 05/16/2025 7:30 AM EDT Office Visit [facility] Felice [address]stock 3rd Floor, [address] [place] [address] Misty Sosa DNP [address] [place] [address], [address] [address] 05/30/2025 11:30 AM EDT Office Visit [facility] [address] [place] [address] Dr 3rd Floor, [address] [place] [address] MD [address] [place] [address], [address] [place] [address] [email or web address] 07/04/2025 Procedure Pass [facility] Endoscopy Admitting Dept Virtual Department [address] [place] [address] 07/04/2025 7:30 AM EDT Hospital Encounter [facility] Endoscopy Admitting Dept Virtual Department [address] [place] [address] Ian Whitney MD [address] [place] [address] 07/04/2025 7:30 AM EDT - 07/04/2025 7:45 AM EDT Surgery [facility] Endoscopy Admitting Dept Virtual Department [address] [place] [address] Ian Whitney MD [address] [place] [address] COLONOSCOPY 11/08/2025 8:00 AM EST Office Visit [facility] Medicine [address] [place] [address] Ancelmo Miguel MD [address] [place] [address], [address] [place] [address] [email or web address] Scheduled Procedures Name Priority Associated Diagnoses Date/Ti me COLONOSCOPY Personal history of colon polyps, unspecified 07/04/2025 7:30 AM EDT documented as of this encounter Visit Diagnoses Not on filedocumented in this encounter Additional Health Concerns Assessment Noted Time PHQ-2 Depression Total Score: 0 06/28/20 23 2:30 PM EDT documented as of this encounter Care Teams Plastics Plater Relationship Specialty Start Date End Date Ancelmo Miguel MD [address] [place] [address], [address] [place] [address] [email or web address] PCP - General Family Medicine 09/20/18 Steve Adams MD [address] [place] [address] 154 [place] [address] Cardiology 10/04/19 [place] [address] [place] [address] 205 [place] [address] Ophthalmology 06/09/22 documented as of this encounter Additional Source Comments The information contained in this document represents components of the legal health record. It is not the complete legal health record.[facility]
--- OUTSIDE RECORDS SUMMARY | 2025-05-07 21:32 | XMS_ITS | Encounter Summary ---
Author Organization [facility] Address [address] [place] [address] Phone Care Team Providers Care Wireless Internet Installer Name Role Phone Ancelmo Miguel MD Primary Care Provider [phone] Steve Adams MD Unavailable [phone] Jesi Pop MD Unavailable Reason for Visit * Auth/Cert (Routine) Specialty Diagnoses / Procedures Referred By Contac t Referred To Contact Diagnoses Family history of colonic polyps Family history of colonic polyps [Z83.719] Procedures MA COLONOSCOPY FLX DX W/COLLJ SPEC WHEN PFRMD MA COLONOSCOPY W/BIOPSY SINGLE/MULTIPLE MA COLSC FLX W/RMVL OF TUMOR POLYP LESION SNARE TQ COLONOSCOPY Referral ID Status Reason Start Date Expiration Date Visits Re quested Visits Authorized [id number] 1 1 Encounter Details Date Type Department Care Team (Late st Contact Info) Description 04/09/2025 Hospital Encounter [facility] Admitting Dept Virtual Department [address] [place] [address] Ian Whitney MD [address] [place] [id number] Social History Tobacco Use Types Packs/Day Years [...] 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 Not on file Not on fi le documented as of this encounter Plan of Treatment Upcoming Encounters Date Type Department Care Team (Latest Contact Info) Description 11/06/2024 Procedure Pass [facility] [address] [place] [address] 05/09/2025 7:15 AM EDT Appointment Echo Lab [address] [place] [address] Misty Sosa DNP [address] [place] [id number] 05/16/2025 7:30 AM EDT Office Visit [facility] [address], [address] [address] Misty Sosa DNP [address] [place] [address], [address] [phone] 05/30/2025 11:30 AM EDT Office Visit [address] [facility], [address] MD [address] [place] [address], [address] [address] [email or web address] 07/04/2025 Procedure Pass [facility] Admitting Dept Virtual Department [address] [place] [phone] 07/04/2025 7:30 AM EDT Hospital Encounter [facility] Admitting [facility] Virtual Department [address] [place] [id number] Ian Whitney MD [address] [place] [id number] 07/04/2025 7:30 AM EDT - 07/04/2025 7:45 AM EDT Surgery [facility] Admitting Dept Virtual Department [address] [place] [address] Ian Whitney MD [address] [place] [id number] COLONOSCOPY 11/08/2025 8:00 AM EST Office Visit [address] [address] Ancelmo Miguel MD [address] [place] [address], [address] [place] [address] [email or web address] Scheduled Procedures Name Priority Associated Diagnoses Date/Ti me COLONOSCOPY Personal history of colon polyps, unspecified 07/04/2025 7:30 AM EDT documented as of this encounter Visit Diagnoses Not on filedocumented in this encounter Additional Health Concerns Assessment Noted Time PHQ-2 Depression Total Score: 0 07/27/20 24 4:30 AM EST documented as of this encounter Care Teams Wireless Internet Installer Relationship Specialty Start Date End Date Ancelmo Miguel MD [address] [place] [address], [address] [place] [address] PCP - General Family Medicine 09/20/18 Steve Adams MD [address] [place] [address] Cardiology 10/04/19 Jesi Pop MD [address] [facility] [address] [place] [address] Ophthalmology 06/09/22 documented as of this encounter Additional Source Comments The information contained in this document represents components of the legal health record. It is not the complete legal health record.[facility]
[2025-05-07 21:38] LABS: Hematocrit 26.6 % (42.0-52.0); Hemoglobin 8.8 g/dl (14.0-18.0); Mean Corpuscular HGB Conc 33.1 g/dl (31.0-36.0); Mean Corpuscular Hemoglobin 27.6 pg (27.0-33.0); Mean Corpuscular Volume 83.4 fL (80.0-98.0); NRBC Abs Auto 0.000 X10*3/uL (0.0-0.012); NRBC Pct Auto 0.0 /100WBC (0.0-0.2); Platelet Count 164 X10*3/uL (160-400); Red Blood Count 3.19 X10*6/uL (4.60-5.80); White Blood Count 7.7 X10*3/uL (4.8-10.8)
[2025-05-07 21:42] LABS: Anion Gap 17 (12-20); Blood Urea Nitrogen 35 mg/dL (9-16); Calcium 8.3 mg/dL (8.4-10.2); Carbon Dioxide 24 mmol/L (22-29); Chloride 102 mmol/L (96-108); Creatinine Clr Calc Pharmacy 34.5; Estimated Glomerular Filt Rate 28; Potassium 4.5 mmol/L (3.3-5.1); Sodium 138 mmol/L (135-145)
--- NOTE | 2025-05-07 21:52 | ED.FALL ---
HPI - Fall General Chief Complaint: Fall Stated Complaint: Fall, L foot pain Time Seen by Provider: 05/07/25 21:09 Source: patient, family and EMS Mode of arrival: EMS Limitations: altered mental status (Intoxicated) History of Present Illness ED Provider: Dr. Alexandria Corea HPI Narrative: 74-year-old male with history of aortic valve regurgitation, atrial fibrillation status post Watchman procedure, on low-dose aspirin, hypertension presenting after a syncopal episode that occurred at home today. EMS was called to the home by family after the patient syncopized climbing out of his hot tub tonight. Was drinking vodka and sitting in the hot tub for about 15 minutes. His reports he had ?a hard time getting out of the hot tub? and was sitting on the step getting into the hot tub when he lost consciousness completely. He fell to his left side but she was able to catch him before he truly hit his head on the concrete floor. Was unconscious for approximately 10 seconds and then tried to get himself up, scraping his knees, feet and wrists. Patient states that he feels a little nauseous but otherwise has no complaints. Denies other illicit substance use. Had been feeling well prior to passing out. He does drink regularly, approximately 5-6 oz of vodka daily. Has been off of anticoagulation aside from baby aspirin since March. Related Data Previous Rx's ?Medication ?Instructions ?Recorded losartan 50 mg tablet 50 mg PO DAILY #30 tabs 06/18/22 Allergies Allergy/AdvReac Type Severity Reaction Status Date / Time acetazolamide (From Diamox Allergy Swelling Verified 05/07/25 20:56 Sequels) Review of Systems Review of Systems: as per HPI, full review of systems performed and negative but for the above mentioned pertinent positives and negatives. PENDING SALE TO [facility] Past Medical History Medical History HTN (hypertension) Surgical History History of cataract surgery Social History Social History Alcohol intake: current Alcohol intake frequency: 0-2 drinks per day Alcohol type: hard liquor Patient Tobacco Use Status: Never used Tobacco Smoked in Last 30 Days: No Use of substances other than those prescribed or required for medical reasons: No Advance Directives: No Advance Directives Information Provided: No Physical Exam Exam: Exam: GENERAL: Appears intoxicated, GCS 13, eyes open to voice, slurred speech, no acute distress. SKIN: Normal skin color for ethnicity, warm, dry, no rashes noted. HEENT: Normocephalic, small abrasion overlying the left temporal and bridge of the nose, no raccoon's eyes and no cain sign, no stridor, posterior oropharynx nonerythematous, dentition intact, EOMI, pupils are pinpoint bilaterally, reactive to light. NECK: Soft, supple, no step-offs, no deformities, no lymphadenopathy. CHEST: Heart regular rhythm, no murmurs, symmetric chest rise and fall. PULMONARY: Clear to auscultation bilaterally, diminished at the bases, no labored breathing, no wheezes/rhales/rhonchi. ABDOMINAL: Soft, nondistended, positive bowel sounds in all quadrants. : Deferred. MUSCULOSKELETAL: Normal tone, full range of motion, no deformities, no peripheral edema, bilateral knee contusions with associated superficial abrasions overlying the patellas, no joint effusion, neurovascularly intact distally, left great toe nail partial avulsion. NEURO: GCS 13, eyes open to voice, slightly slurred speech, CN II through XII intact, equal strength and sensation bilateral upper and lower extremities, no focal neurologic deficits. PSYCHIATRIC: Flat affect, good eye contact. Vital Signs: Vital Signs: Last Vital Signs Temp 97.8 F 05/07/25 20:52 Pulse 69 05/08/25 00:42 BP 122/61 05/08/25 00:42 Pulse Ox 95 05/07/25 20:52 O2 Del Method Room Air 05/07/25 20:52 BMI result Body Mass Index 30.7 Medications Administered Generic Name Dose Route Start Last Admin Trade Name Freq PRN Reason Stop Dose Admin Lactated Ringer's 1,000 mls @ 999 mls/hr 05/08/25 00:38 05/08/25 00:42 Lr IV 05/08/25 01:38 999 mls/hr .Q1H1M ONE Administration Medical Decision Making Medical Decision Making [facility] Narrative: Patient presents today with chief complaint of syncope. I considered multiple diagnoses of etiology including most importantly cardiac arrhythmia, seizure, subarachnoid hemorrhage, vascular catastrophe such as AAA, as well as other more common etiologies such as a vasovagal syncope and orthostasis. Broad-based work-up was initiated to evaluate etiology including head CT, EKG and blood work. He is rather hypotensive here in the emergency department with blood pressures as low as 98/41. I do suspect this is secondary to the alcohol intoxication associated with being in a hot tub tonight. Blood pressure improving after fluids. He is afebrile. 0:30 AM 05/08/2025 (Dr. Alexandria Corea, D.O.) patient is showing some evidence of acute kidney injury. He tells me he has no history of kidney disease. Think he is probably very dry as he mentions he has only been drinking alcohol today. Plan for additional IV fluids as he had an episode of hypotension. He did respond to the initial fluid bolus. CT imaging is negative for fracture or intracranial process. 1:30 AM 05/08/2025 (Dr. Alexandria Corea, D.O.) blood pressure improving, patient ambulatory in the emergency department without assistance, clear speech and steady gait. Plan for discharge home to follow up with primary care. Using shared decision making, plan for discharge home to follow-up with primary care and/or specialist. Patient understands and agrees with plan for discharge. Discharged home in stable condition. Differential Diagnosis Differential Diagnoses: The differential diagnosis associated with the presentation includes (As above) Admission/Observation Consideration of admission/observation: Escalation of care including admission/observation considered Lab Data MDM Lab Attestation statement: I reviewed the patient's lab results. 05/07/25 21:23 05/07/25 21:23 Labs: Lab Results 05/07/25 Range/Units 21:23 WBC 7.7 (4.8-10.8) X10*3/uL RBC 3.19 L (4.60-5.80) X10*6/uL Hgb 8.8 L (14.0-18.0) g/dl Hct 26.6 L (42.0-52.0) % MCV 83.4 (80.0-98.0) fL MCH 27.6 (27.0-33.0) pg MCHC 33.1 (31.0-36.0) g/dl RDW 18.2 H (11.0-16.0) % Plt Count 164 (160-400) X10*3/uL MPV 9.5 (9.4-12.4) fL Absolute Nucleated RBC 0.000 (0.0-0.012) X10*3/uL Nucleated RBC % (auto) 0.0 (0.0-0.2) /100WBC Sodium 138 (135-145) mmol/L Potassium 4.5 (3.3-5.1) mmol/L Chloride 102 (96-108) mmol/L Carbon Dioxide 24 (22-29) mmol/L Anion Gap 17 (12-20) BUN 35 H (9-16) mg/dL Creatinine 2.29 H (0.5-1.4) mg/dL Estim Creat Clear Calc 34.5 Estimated GFR 28 Random Glucose 84 (60-115) mg/dL Calcium 8.3 L (8.4-10.2) mg/dL Magnesium 1.8 (1.6-2.6) mg/dL Troponin I High Sens 17.6 (<3.5-35.0) ng/L Independent Interpretation I performed an independent interpretation of an: EKG Interpretation: My independent interpretation of the ECG reveals normal atrial fibrillation with rate of 65, leftward axis, QRS 126, nonspecific interventricular conduction delay, no ST elevations or depressions to suggest ischemic changes, no previous for comparison Radiology Impression Discussion of test interpretation with radiology: I have reviewed the radiologist's reading. Chronic Conditions Patient?s care impacted by: Other (Atrial fibrillation) Discharge Plan Discharge Clinical Impression: Syncope, Hypotensive episode, Alcohol intoxication, Contusion of left knee, initial encounter, Superficial abrasion, SHAHBAZ (acute kidney injury) Patient Disposition: Home, Self-Care Instructions: Syncope (ED), Hypotension (ED) Additional Instructions: Try to drink plenty of water and other hydrating liquids over the next several days. Avoid alcohol if possible. Avoid going in the hot tub for the next several days. Do not get in the hot tub after you have been drinking. This is likely to happen again if you do. Return to the emergency department with any new or worsening symptoms including: Chest pain, difficulty breathing, passing out again, fevers greater than 100?, any new symptom that concerns you. Call 911 with any medical emergency. Prescriptions: No Action losartan 50 mg tablet 50 mg PO DAILY Qty: 30 0RF Print Language: Hungarian
--- NOTE | 2025-05-07 22:11 | PC.NURSE ---
Pt resting on stretcher, denies pain, call smyth in reach. Patient verbalizes understanding to ring call smyth for assistance
[2025-05-07 22:14] LABS: Magnesium 1.8 mg/dL (1.6-2.6)
[2025-05-07 22:33] LABS: Troponin-I High Sensitivity 17.6 ng/L (<3.5-35.0)
[2025-05-08 00:25] VITALS: BP 88/45; PULSE 67
[2025-05-08 00:42] VITALS: BP 122/61; PULSE 69
[2025-05-08] MEDS: Lactated Ringers 1,000 ML 999 ML IV (00:42)
[2025-05-08 01:47] VITALS: BP 122/61; PULSE 69; RESP 18; TEMP 36.6; O2SAT 95
--- NOTE | 2025-05-17 03:56 | PC.NURSE ---
Late entry: Lactated ringers administered at 0042 on 05/08/25 finished at 0.142 and 0 ml were left in the bag so the patient received the full 1000ml.
== END 2025-05-08 01:40 | disposition home or self-care (01) ==
PROVIDERS: Emergency Provider Emergency Medicine; PCP Internal Medicine
DX: S80.212A Abrasion, left knee, initial encounter (principal); S80.02XA Contusion of left knee, initial encounter; W19.XXXA Unspecified fall, initial encounter; Y93.89 Activity, other specified; Y92.89 Other specified places as the place of occurrence of the external cause; Y99.9 Unspecified external cause status; N17.9 Acute kidney failure, unspecified; R55 Syncope and collapse; F10.129 Alcohol abuse with intoxication, unspecified; I48.91 Unspecified atrial fibrillation
CPT/HCPCS: 36415; 70450; 72125; 80048; 83735; 84484; 85027; 93005; 99284; 99285; J7120

== ENCOUNTER → 2025-05-07 21:13 | Outpatient (BNV) | payer MEDICARE, SELFPAY | PROVIDERS: Emergency Provider Emergency Medicine; PCP Internal Medicine; Visit Provider Internal Medicine Cardiovascular Disease | DX: I45.4 Nonspecific intraventricular block (principal) | CPT/HCPCS: 93010 ==

== ENCOUNTER → 2025-05-07 21:50 | Outpatient (BNV) | payer MEDICARE, SELFPAY | PROVIDERS: Emergency Provider Emergency Medicine; PCP Internal Medicine; Visit Provider Radiology Neuroradiology | DX: S09.90XA Unspecified injury of head, initial encounter (principal); F10.929 Alcohol use, unspecified with intoxication, unspecified | CPT/HCPCS: 70450; 72125 ==